=== PATIENT | female | born 1980 | race Caucasian/White ===

== ENCOUNTER → 2017-05-29 | Outpatient (CLI) | payer OTHER ==
[~2017-05-29] VITALS: Ht 167.6 cm; Wt 86.6 kg
[2017-05-29 14:20] LABS: HEMOGLOBIN 10.8 gm/dl (12.3-15.3); RED BLOOD COUNT 3.7 M/UL (4.00-5.10); WHITE BLOOD COUNT 5.5 K/UL (4.5-11.0)
== END ==
LOC: GENOP 13:24
PROVIDERS: Obstetrics & Gynecology
DX: Z01.812 Encounter for preprocedural laboratory examination (principal); O34.219 Maternal care for unspecified type scar from previous cesarean delivery; Z3A.00 Weeks of gestation of pregnancy not specified
CPT/HCPCS: 36415; 80307; 81001; 85025; J7120

== ENCOUNTER 2017-05-30 06:40 | Inpatient (IN) | payer OTHER ==
[~2017-05-30] VITALS: Ht 167.6 cm; Wt 86.6 kg
[2017-05-31 05:58] LABS: HEMOGLOBIN 9.1 gm/dl (12.3-15.3)
[2017-06-01] MEDS ORDERED: COLACE 100MG C100 MG PO (17:01)
== END 2017-06-01 17:38 | disposition home or self-care (01) | DRG 765 ==
LOC: OB 06:40
PROVIDERS: ADMIT Obstetrics & Gynecology
PROC: 3E0234Z Introduction of Serum, Toxoid and Vaccine into Muscle, Percutaneous Approach (ICD-10-PCS; 2017-05-30)
PROC: 10D00Z1 Extraction of Products of Conception, Low, Open Approach (ICD-10-PCS; principal; 2017-05-30 07:30)
PROC: 3E0234Z Introduction of Serum, Toxoid and Vaccine into Muscle, Percutaneous Approach (ICD-10-PCS; 2017-06-01)
DX: O10.92 Unspecified pre-existing hypertension complicating childbirth (principal); O99.324 Drug use complicating childbirth; F11.20 Opioid dependence, uncomplicated; O98.42 Viral hepatitis complicating childbirth; O34.211 Maternal care for low transverse scar from previous cesarean delivery; N85.8 Other specified noninflammatory disorders of uterus; B19.20 Unspecified viral hepatitis C without hepatic coma; Z3A.40 40 weeks gestation of pregnancy; Z37.0 Single live birth; O09.523 Supervision of elderly multigravida, third trimester; O99.330 Smoking (tobacco) complicating pregnancy, unspecified trimester; Z23 Encounter for immunization
CPT/HCPCS: 36415; 80307; 81001; 82800; 82962; 85014; 85018; 85025; 90715; C9113; J0690; J1885; J2274; J2405; J2590; J2765; J3010; J7120; Q0177; Q2039